=== PATIENT | female | born 1995 | race Two or more races ===

== ENCOUNTER 2016-05-04 15:43 | Outpatient (CLI) | payer MEDICAID ==
--- NOTE | 2016-05-04 18:10 | US ---
Name:NICK IRENE Exam: Obstetrical Ultrasound Comparison: None Clinical History: Intrauterine gestation and prostate 31 weeks 2 days. Trauma. Findings: There is a single living intrauterine gestation in breech position. BPD: 7.9 cm - 32 weeks 0 days HC: 29.8 cm - 33 weeks 0 days AC: 26.1 cm - 30 weeks 2 days FL: 6.1 cm - 31 weeks 5 day Average ultrasound age is 31 weeks 2 days suggesting estimated date of delivery of 07/04/2016. There is a grade 1 posterior placenta without placenta previa. There is no evidence for abruption. Cervix is long and closed at 4.1 cm. LILIANE is subjectively normal. Estimated weight is 1718 g. Heart rate is 180 bpm. A complete anatomic survey was not performed. Impression: 1. Single living intrauterine gestation in the breech position at 31 weeks 2 days by dates and current ultrasound yielding an estimated date of delivery of 07/04/2016 2. Grade 1 posterior placenta without center previa. There is no current evidence for abruption. 3. Cervix is long and closed 4. Subjectively normal LILIANE 5. Complete anatomic survey was not performed Note: Findings were discussed with Dr. Red at 1807 hours
--- NOTE | 2016-05-04 18:41 | PDOC36 ---
Provider Note Subject: Pt. here for fall that happened 2 days ago. Fell on ice in front of house where she was picking up her child. It was dark. She fell forward and landed on hands and knees, bumped her abdomen but did not her full force on her belly. Good Fm, no lof or vb. No bruising to belly. Does have some discomfort that comes and goes. Worse with moving/changing positions or when the baby moves. Exam: Benign, uterus is non tender. No bruising to skin. FHT: Cat 1, no uc's. US performed that showed growth c/w dates, normal carmencita. Breech baby. Placenta, grade 1 without previa. No abruption. A; fall in 31 week . P: looks great here at [facility] with reassuring exam. Has f/u in 48 hours at clinic. Warning s/s of abd pain, uc's, lof, vb etc discussed.
== END 2016-05-04 18:55 | disposition home or self-care (01) ==
LOC: FBCOUT 15:43 → FBC 15:47 → FBCOUT 18:55
PROVIDERS: ATTEND Family Medicine
DX: O26.893 Other specified pregnancy related conditions, third trimester (principal); R10.9 Unspecified abdominal pain; Z3A.31 31 weeks gestation of pregnancy; W00.0XXA Fall on same level due to ice and snow, initial encounter; Y93.89 Activity, other specified; Y92.098 Other place in other non-institutional residence as the place of occurrence of the external cause
CPT/HCPCS: 76816; 59025; 81002; G0463

== ENCOUNTER 2016-06-14 22:53 | Outpatient (CLI) | payer MEDICAID ==
[2016-06-14 23:30] VITALS: BMI 27.3
== END 2016-06-14 23:47 | disposition home or self-care (01) ==
LOC: FBCOUT 22:53 → FBC 22:53 → FBCOUT 23:47
PROVIDERS: ATTEND Family Medicine
DX: O47.9 False labor, unspecified (principal); Z3A.00 Weeks of gestation of pregnancy not specified
CPT/HCPCS: 59025; 81002; G0463

== ENCOUNTER 2016-06-30 03:16 | Inpatient (IN) | payer MEDICAID ==
[2016-06-30] MEDS ORDERED: OXYTOCIN IN LR 500 ML IV ONE ×2 (05:16→05:38)
[2016-06-30] MEDS ORDERED: LACTATED RINGERS 1,000 ML IV PRN (05:16)
[2016-06-30] MEDS ORDERED: LIDOCAINE 1% (PRES FREE) 30 ML VIAL ONE (05:38)
[2016-06-30] MEDS ORDERED: MINERAL OIL 25 ML BOT ONE (05:38)
[2016-06-30] MEDS ORDERED: LIDOCAINE Viscous 2% 15 ML UDCUP ONE (05:38)
[2016-06-30] MEDS ORDERED: OXYTOCIN 10 UNITS/ML VIAL ONE (05:38)
[2016-06-30] MEDS ORDERED: PUMP TUBING ONE (05:38)
[2016-06-30] MEDS ORDERED: IV START KIT ONE (05:39)
[2016-06-30] MEDS ORDERED: LACTATED RINGERS 1,000 ML ONE (05:39)
[2016-06-30 05:59] LABS: HEMATOCRIT 39.7 % (37.0-47.0); HEMOGLOBIN 13.2 gm/l (12.0-16.0); MEAN CELL VOLUME 89.2 fl (81.0-99.0); MEAN CORPUSCULAR HEMOGLOBIN 29.7 pg (27.0-31.0); MEAN CORPUSCULAR HGB CONC 33.2 g/dl (33.0-37.0); RED CELL DISTRIBUTION WIDTH 14.8 % (11.5-14.5)
[2016-06-30] MEDS ORDERED: LIDOCAINE 1% (PRES FREE) 30 ML VIAL SUB-Q ONE (06:35)
--- NOTE | 2016-06-30 06:47 | PCMAN ---
OB Admission Note - History : 4 Term: 3 Livin Gestational Age (weeks): 38 Days (#/7): 5 Admit Cervical Dilation:: 50 Admit Station:: -2 Admit Presentaton:: vertex Membrane Status: Bulging Labor Onset (Date): 06/30/16 Labor Onset (Time): 05:15 Contractions: Yes Contraction Frequency:: q2-3min Heart Rate:: 130 (mod renetta/+accels/no decels) Status:: Cat 1 EFW:: 7# Summary of Course:: Uncomplicated course. OBHx: 2010 at term 2013 PCS for NRFHT at term 2015 @ term, [id number] Dating Hx: LMP 10/03/15 u/s 02/21/16 20w6d, normal anatomy scan u/s 05/04/16 31w2d, normal growth scan PMH: denies SH: denies x 3 PSxH: CSx1 - Labs Blood Type: O (+) positive Rubella Status: Immune GBS Status: Negative Abnormal Labs: None - Review of Systems +ctx, good FM, no LOF, no VB - Physical Exam General: Afebrile Psych/Mental Status: Mood/Affect Appropriate Neurological: Grossly Intact, Alert HEENT: EOMI Lungs: Normal Air Movement Cardiovascular: Regular Rate and Rhythm, Normal S1, Normal S2 - Problems (1) Active labor at term Status: AcuteAssessment/Plan: 20 yo @ 38w5d, TOLAC presented in active labor. 1. Labor: expectant management. CS team notified and present. 2. FWB: cat 1 3. Pain: declines meds 4. GBS neg 5. BCM: desires pp nexplanon
--- NOTE | 2016-06-30 06:52 | PCMDEL ---
Delivery Note - Labor 1st stage (hr/min):: 55m 2nd stage (hr/min):: 1m 3rd stage (hr/min):: 4m Total (hr/min):: 1h Pushed (hr/min):: 1m - Delivery Delivery (Date): 06/30/16 Delivery (Time): 06:11 Infant Gender: Female Presentation: Cephalic Position: OA Umbilical Cord: 3 Vessel, Nuchal Cord Delayed Cord Clamping:: < 1-2 min 1 Minute Total: 9 5 Minute Total: 9 Placenta:: intact EBL:: 300cc Perineum:: 2nd degree perineal Suture:: 3-0 vicryl Anesthesia/Meds:: local lidocaine for repair Length ROM:: 21m Comments:: Uncomplicated over intact perineum. Head easily delivered. Pt stopped pushing and closed her legs after delivery of head, but with gentle direction she relaxed and shoulders/body easily delivered through a loose nuchal cord. Infant placed on maternal abdomen with vigorous cry. Cord clamping delayed by 1 minutes, cut by FOB. Active management of 3rd stage with pitocin IV. Placenta delivered, intact, 3VC. A 2nd degree lac was repaired in standard fashion for excellent hemostasis. EBL 300cc.
[2016-06-30] MEDS ORDERED: HYDROCODONE/ACETAMINOPHEN 5/325MG TABLET PO PRN (07:02)
[2016-06-30] MEDS ORDERED: DOCUSATE SODIUM 100 MG CAPSULE PO PRN (07:02)
[2016-06-30] MEDS ORDERED: BENZOCAINE/MENTHOL 60 APPLIC/BOT TP PRN (07:02)
[2016-06-30] MEDS ORDERED: LANOLIN 50 APPLIC/7G TUBE TP PRN (07:02)
[2016-06-30] MEDS ORDERED: OXYCODONE HCL 5 MG TABLET PO PRN (07:02)
[2016-06-30] MEDS: IBUPROFEN 600 MG TABLET PO PRN ×2 (07:26→19:55)
[2016-07-01 06:50] LABS: HEMATOCRIT 35.6 % (37.0-47.0); HEMOGLOBIN 11.8 gm/l (12.0-16.0)
[2016-07-01 07:16] VITALS: BP 101/61
--- NOTE | 2016-07-01 09:10 | PDOC44 ---
- Subjective Day: 1 Patient is PPD #1 s/p successful . She is doing well. She is requesting early d/c home today. She is formula feeding. States pain controlled with meds. Lochia minimal. No dizziness. Reports Pain Tolerable, Reports Lochia Light, Reports Tolerating Regular Diet, Denies Nausea, Denies Vomiting - Objective Temp Pulse Resp BP Pulse Ox 98.0 F 68 14 101/61 07/01/16 07:12 07/01/16 07:12 07/01/16 07:12 07/01/16 07:12 Lab Results 07/01/16 06:10 Hgb 11.8 L Hct 35.6 L Current Medications Generic Name Dose Route Start Last Admin Trade Name Freq PRN Reason Stop Dose Admin Acetaminophen/Hydrocodone Bitart 1 - 2 tab 06/30/16 07:02 Delta 5/325 PO Q4H PRN Pain (Moderate) Benzocaine/Menthol 1 applic 06/30/16 07:02 Dermoplast TP PRN PRN Patient Comfort Docusate Sodium 100 mg 06/30/16 07:02 Colace PO DAILY PRN Comfort Emollient Ointment 1 applic 06/30/16 07:02 [id number] TP PRN PRN sore nipples Ibuprofen 600 mg 06/30/16 07:02 06/30/16 19:55 Motrin PO 600 mg Q6H PRN Administration Pain (Mild) Oxycodone HCl 5 - 10 mg 06/30/16 07:02 Roxicodone PO Q3H PRN Pain (Severe) Sodium Chloride 10 ml 06/30/16 07:02 Normal Saline 10ml Flush IV PRN PRN IV Flush Sodium Chloride 10 ml 06/30/16 09:00 Normal Saline 10ml Flush IV Q8HR MELANIE - Physical Exam General: Afebrile, No Acute Distress Psych/Mental Status: Mood/Affect Appropriate, Bonding Well Neurological: Alert, Normal Speech Lungs: Clear to Auscultation Bilaterally, Normal Air Movement Cardiovascular: Regular Rate and Rhythm, Normal S1, Normal S2 Fundus: Firm, Midline Extremities: Full ROM, No Edema, No Tenderness Skin: Normal Color, Warm, Dry, Intact, No Rash - Problems:Assessment/Plan (1) (vaginal after ) Status: AcuteAssessment/Plan: PPD#1 s/p . - stable for discharge - formula feeding - Rx for Ibuprofen - will follow up with PCp in 6 weeks Disposition: Stable, Anticipate DC to Home
== END 2016-07-01 12:30 | disposition home or self-care (01) | DRG 775 ==
LOC: FBCOUT 03:16 → FBC 03:16 → FBCOUT 05:15
PROVIDERS: ADMIT Family Medicine; ATTEND Family Medicine
PROC: 10E0XZZ Delivery of Products of Conception, External Approach (ICD-10-PCS; principal; 2016-06-30)
PROC: 0KQM0ZZ Repair Perineum Muscle, Open Approach (ICD-10-PCS; 2016-06-30)
DX: O69.81X0 Labor and delivery complicated by cord around neck, without compression, not applicable or unspecified (principal); O70.1 Second degree perineal laceration during delivery; Z3A.38 38 weeks gestation of pregnancy; Z37.0 Single live birth; O34.219 Maternal care for unspecified type scar from previous cesarean delivery; N85.8 Other specified noninflammatory disorders of uterus; Z88.0 Allergy status to penicillin; Z88.1 Allergy status to other antibiotic agents